=== PATIENT | female | born 1960 | race Caucasian/White ===

== ENCOUNTER → 2025-01-09 | Outpatient (CLI) | payer MEDICARE, OTHER ==
--- NOTE | 2025-01-10 08:02 | MR ---
INDICATION: Patient age:Female; 64 years old; Reason for study: C43.9; PHH. History of melanoma. COMPARISON: None. TECHNIQUE: Multi planar, multi sequence imaging was performed through the brain. The patient was then given 5 cc of Gadobutrol intravenously and multi planar, T1 fat-saturation images were obtained. FINDINGS: The patel-white junctions, ventricular system, basal cisterns appear unremarkable. Mild age-appropriat e cerebral volume loss. Diffusion-weighted imaging shows no evidence of restricted diffusion to sugge st acute/subacute infarct. Intracranial arterial flow voids are maintained. Midline structures show n o abnormality. Few patchy areas of high T2/FLAIR signal intensity are seen within the periventricular and subcortical white matter. Additional involvement of the central triston. The susceptibility weighte d images do not reveal any evidence for micro-hemorrhage. 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 After administration of gadolinium, no abnormal enhancement is seen. The bone marrow signal is within normal limits. Hyperostosis frontalis. The globes are unremarkable. Air-fluid level within the right maxillary sinus. Mild mucosal thickening of the ethmoid sinuses. IMPRESSION: 1. No evidence of intracranial mass, acute/subacute infarct, or abnormal enhancement to suggest metas tasis. 2. Nonspecific mild white matter changes, likely related to small vessel ischemic disease. [facility], , 01/10/2025 7:59 AM
== END | disposition home or self-care (01) ==
LOC: RADMRIMAIN 21:45
PROVIDERS: ATTEND Internal Medicine
DX: C43.9 Malignant melanoma of skin, unspecified (principal); R90.82 White matter disease, unspecified
CPT/HCPCS: 70553; A9585

== ENCOUNTER → 2025-01-29 | Outpatient (CLI) | payer MEDICARE, OTHER ==
--- NOTE | 2025-01-29 08:22 | MR ---
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 COMPARISON: None TECHNIQUE: Multiplanar multi-sequence imaging was performed without and with IV contrast. The patie nt was given 4.5 ccs of Gadobutrol intravenously and dynamic imaging was performed. Post IV contrast subtraction images were also submitted for review. FINDINGS: LOWER CHEST: Mild cardiomegaly. T1 intrinsic hyperintensity enhancing 5 mm nodule within the right br east medially (series 1002, image 121). ABDOMEN Liver: Noncirrhotic morphology. Diffuse dropout of signal on in phase imaging with diffusely low T2 s ignal. No suspicious focal lesion. Gallbladder and Bile ducts: Circumferential wall thickening of the gallbladder measuring 5 mm. No gal lstones identified. No biliary ductal dilatation. Pancreas: Unremarkable. Spleen: Unremarkable. Adrenal glands: Unremarkable. Kidneys: Adrenal nephrosis. Medial right kidney T2 hyperintense nonenhancing thin-walled 2.9 cm cyst. Stomach and Bowel: Unremarkable as visualized. Peritoneum: No evidence of pneumoperitoneum or adenopathy. Small ascites within the abdomen. Vasculature: No abdominal aortic aneurysm. Short segment dissection involving the distal abdominal ao rta (series 1001, image 202). Abdominal wall: Peripheral curvilinear intrinsic hyperdense intense T1 lesions within the bilateral g luteal subcutaneous tissues. These demonstrate peripheral enhancement with central T2 hyperintensity. Musculoskeletal: Mild S-shaped scoliotic curvature of the thoracolumbar spine. Multilevel degenerativ e disc disease of the lumbar spine. No suspicious enhancing visualized osseous lesions. IMPRESSION: 1. No suspicious hepatic lesion. 2. Findings of hemosiderosis involving the liver. 3. Peripheral enhancing curvilinear bilateral gluteal subcutaneous tissue lesions. May represent inj ection granulomas versus small abscesses versus epidermal inclusion cysts with metastasis is not excl uded. Correlate with prior imaging. 4. 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 Correlate with prior im aging. 5. Small amount of ascites throughout the abdomen. 6. Nonspecific enhancing nodule within the medial right breast. Correlate with prior breast imaging. [facility], , 01/29/2025 8:20 AM
== END | disposition home or self-care (01) ==
LOC: RADMRIMAIN 07:03
PROVIDERS: ATTEND Internal Medicine
DX: C43.9 Malignant melanoma of skin, unspecified (principal); E83.19 Other disorders of iron metabolism; I71.02 Dissection of abdominal aorta; R18.8 Other ascites; N63.10 Unspecified lump in the right breast, unspecified quadrant
CPT/HCPCS: 74183; A9585